=== PATIENT | male | born 1950 | race Caucasian/White ===

== ENCOUNTER 2021-10-06 11:47 | Inpatient (IN) | payer MEDICARE ==
[2021-10-06 12:37] LABS: #Eosinphils 0.1 10x3/uL (0.0-0.5); #Monocytes 0.7 10x3/uL (0.0-1.1); %Basophils 0.2 % (0.0-2.0); %Eosinophils 0.4 % (0.0-6.0); %Lymphocytes 8.7 % (18.0-47.0); %Monocytes 5.9 % (0.0-10.0); %Neutrophils 84.2 % (40.0-75.0); Hemoglobin 14.3 g/dL (13.5-17.5); Mean Corpuscular HGB CONC 32.6 g/dL (32.0-36.0); Mean Corpuscular Hemoglobin 32.4 pg (27.0-33.0); Mean Corpuscular Volume 99.5 fl (81.2-95.1); Mean Platelet Volume 11.2 fl (7.4-10.4); Platelet Count 164 10x3/uL (150-450); RBC Distribution Width 14.1 % (11.5-14.5); Red Blood Cell (RBC) Count 4.41 10x6/uL (4.32-5.72); White Blood Cell (WBC) Count 11.8 10x3/uL (3.5-10.5)
[2021-10-06 12:56] LABS: ALT (SGPT) 16 U/L (8-55); AST (SGOT) 33 U/L (5-34); Albumin 2.4 g/dL (3.4-4.8); Alkaline Phosphatase 94 U/L (40-110); Anion Gap 15 mmol/L (10-20); BUN (Urea Nitrogen) 31 mg/dL (8.4-25.7); Bilirubin, Total 0.6 mg/dL (0.2-1.2); CK (CPK) 30 U/L (30-200); Calc. Creatinine Clearance 0 mL/min (70-130); Calcium 6.9 mg/dL (7.8-10.44); Carbon Dioxide 22 mmol/L (23-31); Chloride 104 mmol/L (98-107); Globulin 3.1 g/dL (2.4-3.5); Glucose 107 mg/dL (83-110); Magnesium 1.9 mg/dL (1.6-2.6); Potassium 4.6 mmol/L (3.5-5.1); Protein, Total 5.5 g/dL (5.8-8.1); Sodium 136 mmol/L (136-145)
[2021-10-06 13:16] LABS: CKMB 2.5 ng/mL (0-6.6)
[2021-10-06 13:25] LABS: SARS-CoV-2 NAA Rapid Test DETECTED (NotDetected)
[2021-10-06 13:40] LABS: Actual Bicarbonate (HCO3a) 20.1 mEq/L (22-28); Base Excess (BEa) -3.4 mEq/L (-2.0 to +3.0); CO2 Tension 31.9 mmHg (35.0-45.0); Calcium, Ionized (arterial) 1.03 mmol/L (1.12-1.30); Carboxyhemoglobin (COHb) 0.9 gm% (0.0-3.0); Hemoglobin (Hb) 14.3 g/dL (14.0-18.0); Puncture Site RBA; pH, Arterial 7.42 (7.35-7.45)
[2021-10-06 13:42] LABS: ALV-art Gradient 185.625 mmHg (0-20)
[2021-10-06] MEDS ORDERED: cefTRIAXone\\ROCEPHIN 2 GM VIAL ONE (13:43)
[2021-10-06] MEDS ORDERED: Azithromycin 500 MG VIAL ONE (14:34)
[2021-10-06 15:25] LABS: Troponin I 0.129 ng/mL (< 0.028)
[2021-10-06] MEDS ORDERED: Acetaminophen 325 MG TAB PO PRN (15:34)
[2021-10-06] MEDS: Sodium Chloride 0.9% 1,000 ML IV SCH (16:23)
[2021-10-06] MEDS ORDERED: FLU VACC QS2021-22(65YR UP)/PF 240 MCG/0.7 ML SYRINGE IM ONE (17:00)
[2021-10-06] MEDS: BARICITINIB 2 MG TAB PO SCH (17:24)
[2021-10-06] MEDS ORDERED: REMDESIVIR 200 MG in Sodium Chloride 0.9% 250 ML 210 ML IV SCH (18:00)
[2021-10-06 18:46] LABS: Troponin I 0.107 ng/mL (< 0.028)
[2021-10-06] MEDS: Enoxaparin Sodium 40 MG/0.4 ML SYRINGE SC SCH (20:48)
[2021-10-06] MEDS: Doxycycline 100 MG CAP PO SCH (20:50)
[2021-10-06] MEDS ORDERED: Erythromycin Base 0.5% Oint 1 GM TUBE L EYE SCH (21:00)
[2021-10-07 04:41] LABS: Anion Gap 10 mmol/L (10-20); BUN (Urea Nitrogen) 25 mg/dL (8.4-25.7); Calc. Creatinine Clearance 99 mL/min (70-130); Calcium 6.9 mg/dL (7.8-10.44); Carbon Dioxide 21 mmol/L (23-31); Chloride 107 mmol/L (98-107); Glucose 113 mg/dL (83-110); Potassium 4.4 mmol/L (3.5-5.1); Sodium 134 mmol/L (136-145)
[2021-10-07 04:43] LABS: ALT (SGPT) 16 U/L (8-55); AST (SGOT) 32 U/L (5-34); Albumin 2.3 g/dL (3.4-4.8); Alkaline Phosphatase 83 U/L (40-110); Bilirubin, Direct 0.2 mg/dL (0.1-0.3); Bilirubin, Total 0.3 mg/dL (0.2-1.2); Protein, Total 5.5 g/dL (5.8-8.1)
[2021-10-07 05:11] LABS: #Monocytes 0.2 10x3/uL (0.0-1.1); %Basophils 0.2 % (0.0-2.0); %Lymphocytes 25.4 % (18.0-47.0); %Monocytes 4.2 % (0.0-10.0); %Neutrophils 69.7 % (40.0-75.0); Hemoglobin 12.5 g/dL (13.5-17.5); Mean Corpuscular HGB CONC 32.9 g/dL (32.0-36.0); Mean Corpuscular Volume 97.2 fl (81.2-95.1); Mean Platelet Volume 11.5 fl (7.4-10.4); Platelet Count 151 10x3/uL (150-450); RBC Distribution Width 13.9 % (11.5-14.5); Red Blood Cell (RBC) Count 3.91 10x6/uL (4.32-5.72); White Blood Cell (WBC) Count 4.3 10x3/uL (3.5-10.5)
[2021-10-07] MEDS ORDERED: Dexamethasone 20 MG/5 ML VIAL SLOW IVP SCH (09:00)
[2021-10-07] MEDS ORDERED: Dexamethasone 10 MG in Sodium Chloride 0.9% 50 ML IVPB SCH (09:00)
[2021-10-07] MEDS: Aspirin 81 mg Enteric Coated Tablet PO SCH (09:01)
[2021-10-07] MEDS: Cholecalciferol (Vitamin D3) 400 UNITS TAB PO SCH (09:01)
[2021-10-07] MEDS: Enoxaparin Sodium 40 MG/0.4 ML SYRINGE SC SCH ×2 (09:01→21:09)
[2021-10-07] MEDS: Doxycycline 100 MG CAP PO SCH ×2 (09:01→21:09)
[2021-10-07] MEDS: Zinc Sulfate 220 MG CAP PO SCH (09:02)
[2021-10-07] MEDS: Ascorbic Acid 500 mg Chewable Tablet PO SCH (09:02)
[2021-10-07] MEDS ORDERED: Chloraseptic Spray 180 ml Bottle PO PRN (09:52)
[2021-10-07] MEDS: Nystatin 500,000 UNITS/5 ML UDCUP SSW SCH ×3 (12:13→21:09)
[2021-10-07] MEDS: cefTRIAXone\\ROCEPHIN 1 GM in Sodium Chloride 0.9% 100 ML IVPB SCH (12:13)
[2021-10-07] MEDS: Sodium Chloride 0.9% 1,000 ML IV SCH (13:07)
[2021-10-07] MEDS: REMDESIVIR 100 MG in Sodium Chloride 0.9% 250 ML 230 ML IV SCH (16:52)
[2021-10-07] MEDS: BARICITINIB 2 MG TAB PO SCH (16:52)
[2021-10-08 04:31] LABS: ALT (SGPT) 20 U/L (8-55); AST (SGOT) 37 U/L (5-34); Albumin 2.2 g/dL (3.4-4.8); Alkaline Phosphatase 81 U/L (40-110); Anion Gap 10 mmol/L (10-20); BUN (Urea Nitrogen) 28 mg/dL (8.4-25.7); Bilirubin, Direct 0.2 mg/dL (0.1-0.3); Bilirubin, Total 0.3 mg/dL (0.2-1.2); Calc. Creatinine Clearance 96 mL/min (70-130); Calcium 7.6 mg/dL (7.8-10.44); Carbon Dioxide 24 mmol/L (23-31); Chloride 106 mmol/L (98-107); Glucose 128 mg/dL (83-110); Potassium 4.9 mmol/L (3.5-5.1); Protein, Total 5.3 g/dL (5.8-8.1); Sodium 135 mmol/L (136-145)
[2021-10-08 05:05] LABS: #Monocytes 0.5 10x3/uL (0.0-1.1); #Neutrophils 7.2 10x3/uL (1.5-8.4); %Basophils 0.2 % (0.0-2.0); %Lymphocytes 15.9 % (18.0-47.0); %Monocytes 5.5 % (0.0-10.0); %Neutrophils 77.8 % (40.0-75.0); Hemoglobin 12.3 g/dL (13.5-17.5); Mean Corpuscular HGB CONC 32.7 g/dL (32.0-36.0); Mean Corpuscular Volume 97.9 fl (81.2-95.1); Mean Platelet Volume 11.1 fl (7.4-10.4); Platelet Count 168 10x3/uL (150-450); RBC Distribution Width 13.9 % (11.5-14.5); Red Blood Cell (RBC) Count 3.84 10x6/uL (4.32-5.72); White Blood Cell (WBC) Count 9.2 10x3/uL (3.5-10.5)
[2021-10-08] MEDS: Sodium Chloride 0.9% 1,000 ML IV SCH (09:10)
[2021-10-08] MEDS: Cholecalciferol (Vitamin D3) 400 UNITS TAB PO SCH (09:11)
[2021-10-08] MEDS: Aspirin 81 mg Enteric Coated Tablet PO SCH (09:11)
[2021-10-08] MEDS: Ascorbic Acid 500 mg Chewable Tablet PO SCH (09:11)
[2021-10-08] MEDS: Enoxaparin Sodium 40 MG/0.4 ML SYRINGE SC SCH ×2 (09:12→20:38)
[2021-10-08] MEDS: Zinc Sulfate 220 MG CAP PO SCH (09:12)
[2021-10-08] MEDS: Doxycycline 100 MG CAP PO SCH ×2 (09:12→20:38)
[2021-10-08] MEDS: Dexamethasone 20 MG/5 ML VIAL SLOW IVP SCH (09:43)
[2021-10-08] MEDS: Nystatin 500,000 UNITS/5 ML UDCUP SSW SCH ×4 (09:43→20:38)
[2021-10-08] MEDS: cefTRIAXone\\ROCEPHIN 1 GM in Sodium Chloride 0.9% 100 ML IVPB SCH ×2 (12:17→13:44)
[2021-10-08 14:56] LABS: Strep pneumo Urine Ag NEGATIVE (NEGATIVE)
[2021-10-08 15:24] LABS: Legionella Urinary Ag Negative (Negative)
[2021-10-08] MEDS: BARICITINIB 2 MG TAB PO SCH (16:25)
[2021-10-08] MEDS: REMDESIVIR 100 MG in Sodium Chloride 0.9% 250 ML 230 ML IV SCH (16:26)
[2021-10-09 05:26] LABS: ALT (SGPT) 24 U/L (8-55); AST (SGOT) 43 U/L (5-34); Albumin 2.2 g/dL (3.4-4.8); Alkaline Phosphatase 81 U/L (40-110); Anion Gap 12 mmol/L (10-20); BUN (Urea Nitrogen) 27 mg/dL (8.4-25.7); Bilirubin, Direct 0.2 mg/dL (0.1-0.3); Bilirubin, Total 0.2 mg/dL (0.2-1.2); Calc. Creatinine Clearance 100 mL/min (70-130); Calcium 7.4 mg/dL (7.8-10.44); Carbon Dioxide 22 mmol/L (23-31); Chloride 108 mmol/L (98-107); Globulin 2.6 g/dL (2.4-3.5); Glucose 105 mg/dL (83-110); Potassium 4.5 mmol/L (3.5-5.1); Protein, Total 4.8 g/dL (5.8-8.1); Sodium 137 mmol/L (136-145)
[2021-10-09] MEDS: Aspirin 81 mg Enteric Coated Tablet PO SCH (08:05)
[2021-10-09] MEDS: Ascorbic Acid 500 mg Chewable Tablet PO SCH (08:05)
[2021-10-09] MEDS: Cholecalciferol (Vitamin D3) 400 UNITS TAB PO SCH (08:07)
[2021-10-09] MEDS: Dexamethasone 20 MG/5 ML VIAL SLOW IVP SCH (08:08)
[2021-10-09] MEDS: Zinc Sulfate 220 MG CAP PO SCH (08:11)
[2021-10-09] MEDS: Nystatin 500,000 UNITS/5 ML UDCUP SSW SCH ×4 (08:11→20:09)
[2021-10-09 08:47] LABS: Magnesium 1.8 mg/dL (1.6-2.6); Phosphorus 2.5 mg/dL (2.3-4.7)
[2021-10-09] MEDS: Enoxaparin Sodium 40 MG/0.4 ML SYRINGE SC SCH (08:48)
[2021-10-09] MEDS ORDERED: Polyethylene Glycol 3350 17 GM Packet PO SCH (09:00)
[2021-10-09] MEDS: Guaifenesin DM 100-10/5 ML UDCUP PO PRN ×2 (10:05→14:09)
[2021-10-09] MEDS: REMDESIVIR 100 MG in Sodium Chloride 0.9% 250 ML 230 ML IV SCH (16:23)
[2021-10-09] MEDS: BARICITINIB 2 MG TAB PO SCH (16:25)
[2021-10-10] MEDS: Guaifenesin DM 100-10/5 ML UDCUP PO PRN (04:15)
[2021-10-10 05:04] LABS: Phosphorus 2.2 mg/dL (2.3-4.7)
[2021-10-10 06:58] LABS: ALT (SGPT) 23 U/L (8-55); AST (SGOT) 28 U/L (5-34); Albumin 2.2 g/dL (3.4-4.8); Alkaline Phosphatase 79 U/L (40-110); Anion Gap 10 mmol/L (10-20); BUN (Urea Nitrogen) 43 mg/dL (8.4-25.7); Bilirubin, Direct 0.2 mg/dL (0.1-0.3); Bilirubin, Total 0.4 mg/dL (0.2-1.2); Calc. Creatinine Clearance 99 mL/min (70-130); Calcium 7.1 mg/dL (7.8-10.44); Carbon Dioxide 24 mmol/L (23-31); Chloride 110 mmol/L (98-107); Glucose 86 mg/dL (83-110); Magnesium 1.9 mg/dL (1.6-2.6); Potassium 4.2 mmol/L (3.5-5.1); Protein, Total 4.5 g/dL (5.8-8.1); Sodium 140 mmol/L (136-145)
[2021-10-10] MEDS: Zinc Sulfate 220 MG CAP PO SCH (09:51)
[2021-10-10] MEDS: Dexamethasone 20 MG/5 ML VIAL SLOW IVP SCH (09:51)
[2021-10-10] MEDS: Ascorbic Acid 500 mg Chewable Tablet PO SCH (09:51)
[2021-10-10] MEDS: Nystatin 500,000 UNITS/5 ML UDCUP SSW SCH ×4 (09:51→20:49)
[2021-10-10] MEDS: Aspirin 81 mg Enteric Coated Tablet PO SCH (09:51)
[2021-10-10] MEDS: Enoxaparin Sodium 40 MG/0.4 ML SYRINGE SC SCH (09:51)
[2021-10-10] MEDS: Cholecalciferol (Vitamin D3) 400 UNITS TAB PO SCH (09:51)
[2021-10-10] MEDS ORDERED: Diphenoxylate HCl/Atropine Tablet PO PRN (14:10)
[2021-10-10] MEDS: Lactated Ringer's 1,000 ML IV SCH (15:56)
[2021-10-10] MEDS: BARICITINIB 2 MG TAB PO SCH (15:59)
[2021-10-10] MEDS: REMDESIVIR 100 MG in Sodium Chloride 0.9% 250 ML 230 ML IV SCH (16:00)
[2021-10-11 05:18] LABS: Anion Gap 9 mmol/L (10-20); BUN (Urea Nitrogen) 31 mg/dL (8.4-25.7); Calc. Creatinine Clearance 104 mL/min (70-130); Calcium 7.3 mg/dL (7.8-10.44); Carbon Dioxide 26 mmol/L (23-31); Chloride 107 mmol/L (98-107); Glucose 86 mg/dL (83-110); Potassium 4.4 mmol/L (3.5-5.1); Sodium 138 mmol/L (136-145)
[2021-10-11 05:32] LABS: #Neutrophils 10.5 10x3/uL (1.5-8.4); %Basophils 0.1 % (0.0-2.0); %Eosinophils 0.2 % (0.0-6.0); %Lymphocytes 17.2 % (18.0-47.0); %Neutrophils 73.7 % (40.0-75.0); Mean Corpuscular HGB CONC 33.2 g/dL (32.0-36.0); Mean Corpuscular Hemoglobin 32.5 pg (27.0-33.0); Mean Corpuscular Volume 97.7 fl (81.2-95.1); Mean Platelet Volume 11.2 fl (7.4-10.4); Platelet Count 230 10x3/uL (150-450); RBC Distribution Width 14.2 % (11.5-14.5); Red Blood Cell (RBC) Count 3.08 10x6/uL (4.32-5.72); White Blood Cell (WBC) Count 14.3 10x3/uL (3.5-10.5)
[2021-10-11] MEDS: Ascorbic Acid 500 mg Chewable Tablet PO SCH (09:34)
[2021-10-11] MEDS: Nystatin 500,000 UNITS/5 ML UDCUP SSW SCH ×4 (09:34→20:19)
[2021-10-11] MEDS: Dexamethasone 20 MG/5 ML VIAL SLOW IVP SCH (09:34)
[2021-10-11] MEDS: Cholecalciferol (Vitamin D3) 400 UNITS TAB PO SCH (09:34)
[2021-10-11] MEDS: Aspirin 81 mg Enteric Coated Tablet PO SCH (09:34)
[2021-10-11] MEDS: Zinc Sulfate 220 MG CAP PO SCH (09:34)
[2021-10-11] MEDS: Enoxaparin Sodium 40 MG/0.4 ML SYRINGE SC SCH (09:34)
[2021-10-11] MEDS: Lactated Ringer's 1,000 ML IV SCH (12:02)
[2021-10-11] MEDS: Guaifenesin DM 100-10/5 ML UDCUP PO PRN (12:21)
[2021-10-11] MEDS ORDERED: Electrolyte Replacement Protocol 1 EACH FS SCH (14:15)
[2021-10-11] MEDS ORDERED: Magnesium 2 GM/50 ML 2 GM in Premix Bag 1 BAG IVPB SCH (14:30)
[2021-10-11] MEDS: BARICITINIB 2 MG TAB PO SCH (16:23)
[2021-10-11] MEDS: Mirtazapine 15 MG TAB PO SCH (20:18)
[2021-10-12] MEDS: Guaifenesin DM 100-10/5 ML UDCUP PO PRN (00:12)
[2021-10-12 05:41] LABS: Anion Gap 8 mmol/L (10-20); BUN (Urea Nitrogen) 25 mg/dL (8.4-25.7); Calc. Creatinine Clearance 96 mL/min (70-130); Calcium 7.4 mg/dL (7.8-10.44); Carbon Dioxide 29 mmol/L (23-31); Chloride 105 mmol/L (98-107); Glucose 92 mg/dL (83-110); Sodium 138 mmol/L (136-145)
[2021-10-12 05:48] LABS: ALT (SGPT) 28 U/L (8-55); AST (SGOT) 33 U/L (5-34); Albumin 2.3 g/dL (3.4-4.8); Alkaline Phosphatase 85 U/L (40-110); Bilirubin, Direct 0.3 mg/dL (0.1-0.3); Bilirubin, Total 0.5 mg/dL (0.2-1.2); Magnesium 2.4 mg/dL (1.6-2.6); Protein, Total 4.7 g/dL (5.8-8.1)
[2021-10-12 06:06] LABS: Phosphorus 2.4 mg/dL (2.3-4.7)
[2021-10-12] MEDS: Cholecalciferol (Vitamin D3) 400 UNITS TAB PO SCH (08:06)
[2021-10-12] MEDS: Zinc Sulfate 220 MG CAP PO SCH (08:06)
[2021-10-12] MEDS: Nystatin 500,000 UNITS/5 ML UDCUP SSW SCH ×4 (08:06→20:01)
[2021-10-12] MEDS: Ascorbic Acid 500 mg Chewable Tablet PO SCH (08:06)
[2021-10-12] MEDS: Aspirin 81 mg Enteric Coated Tablet PO SCH (08:06)
[2021-10-12] MEDS: Enoxaparin Sodium 40 MG/0.4 ML SYRINGE SC SCH (08:06)
[2021-10-12 11:16] VITALS: BMI 23.6
[2021-10-12] MEDS: Dexamethasone 20 MG/5 ML VIAL SLOW IVP SCH (13:10)
[2021-10-12] MEDS: BARICITINIB 2 MG TAB PO SCH (17:29)
[2021-10-12] MEDS: Mirtazapine 15 MG TAB PO SCH (20:01)
[2021-10-13 06:09] LABS: Anion Gap 11 mmol/L (10-20); BUN (Urea Nitrogen) 23 mg/dL (8.4-25.7); Calc. Creatinine Clearance 97 mL/min (70-130); Calcium 7.6 mg/dL (7.8-10.44); Carbon Dioxide 27 mmol/L (23-31); Chloride 105 mmol/L (98-107); Glucose 89 mg/dL (83-110); Potassium 4.6 mmol/L (3.5-5.1); Sodium 138 mmol/L (136-145)
[2021-10-13] MEDS: Ascorbic Acid 500 mg Chewable Tablet PO SCH (10:06)
[2021-10-13] MEDS: Enoxaparin Sodium 40 MG/0.4 ML SYRINGE SC SCH (10:07)
[2021-10-13] MEDS: Zinc Sulfate 220 MG CAP PO SCH (10:07)
[2021-10-13] MEDS: Nystatin 500,000 UNITS/5 ML UDCUP SSW SCH ×2 (10:07→14:10)
[2021-10-13] MEDS: Aspirin 81 mg Enteric Coated Tablet PO SCH (10:07)
[2021-10-13] MEDS: Dexamethasone 20 MG/5 ML VIAL SLOW IVP SCH (10:07)
[2021-10-13] MEDS: Cholecalciferol (Vitamin D3) 400 UNITS TAB PO SCH (10:07)
[2021-10-13 13:19] VITALS: BP 98/53; TEMP 97.4
== END 2021-10-13 13:30 | disposition hospice, home (50) | DRG 871 ==
LOC: CSHERS 11:47 → CSHICU 15:28 → CSHTELE 10-09 19:46
PROVIDERS: ADMIT Internal Medicine; ATTEND Family Medicine
PROC: 8E0ZXY6 Isolation (ICD-10-PCS; principal; 2021-10-06)
PROC: XW0DXM6 Introduction of Baricitinib into Mouth and Pharynx, External Approach, New Technology Group 6 (ICD-10-PCS; 2021-10-06)
PROC: XW033E5 Introduction of Remdesivir Anti-infective into Peripheral Vein, Percutaneous Approach, New Technology Group 5 (ICD-10-PCS; 2021-10-06)
PROC: 5A0945A Assistance with Respiratory Ventilation, 24-96 Consecutive Hours, High Flow/Velocity Cannula (ICD-10-PCS; 2021-10-06)
PROC: 3E0333Z Introduction of Anti-inflammatory into Peripheral Vein, Percutaneous Approach (ICD-10-PCS; 2021-10-07)
DX: A41.89 Other specified sepsis (principal); U07.1 COVID-19; J96.21 Acute and chronic respiratory failure with hypoxia; J12.82 Pneumonia due to coronavirus disease 2019; J84.10 Pulmonary fibrosis, unspecified; Z51.5 Encounter for palliative care; Z66 Do not resuscitate; I27.20 Pulmonary hypertension, unspecified; H10.9 Unspecified conjunctivitis; R94.31 Abnormal electrocardiogram [ECG] [EKG]; I25.10 Atherosclerotic heart disease of native coronary artery without angina pectoris; E78.00 Pure hypercholesterolemia, unspecified; Z96.651 Presence of right artificial knee joint; F17.220 Nicotine dependence, chewing tobacco, uncomplicated; R19.7 Diarrhea, unspecified; B37.9 Candidiasis, unspecified; L98.9 Disorder of the skin and subcutaneous tissue, unspecified; Z99.81 Dependence on supplemental oxygen; Z86.73 Personal history of transient ischemic attack (TIA), and cerebral infarction without residual deficits; Z90.89 Acquired absence of other organs; I25.2 Old myocardial infarction
CPT/HCPCS: 0240U; 36415; 36600; 70450; 71045; 80048; 80053; 80076; 82550; 82553; 82805; 83605; 83735; 84100; 84145; 84484; 85025; 86140; 87040; 87449; 87899; 93005; 93010; 93306; 93880; 94640; 94760; 96365; 96375; J0456; J0696; J1100; J1650; J3475; J3490; J7050; J7120